=== PATIENT | female | born 1995 | race Caucasian/White ===

== ENCOUNTER 2021-06-18 10:35 | Inpatient (IN) | payer OTHER ==
[2021-06-14 15:34] VITALS: BMI 30.2
[2021-06-18] MEDS ORDERED: LACTATED RINGERS 1,000 ML IV ONE (11:00)
[2021-06-18] MEDS ORDERED: CITRIC ACID-SODIUM CITRATE 15 ML CUP PO ONE (11:00)
[2021-06-18] MEDS: LACTATED RINGERS 1,000 ML IV SCH ×2 (11:19→17:07)
[2021-06-18 11:27] LABS: Basophils # (A) 0.1 k/uL (0-0.2); Basophils % (A) 0 %; Eosinophils # (A) 0.4 k/uL (0-0.7); Eosinophils % (A) 3 %; HCT 33.7 % (34.0-46.0); HGB 11.4 gm/dL (11.4-16.0); Lymphocytes # (A) 3.2 k/uL (1.0-4.8); Lymphocytes % (A) 22 %; MCH 31.3 pg (25.0-35.0); MCHC 33.9 g/dL (31.0-37.0); MCV 92.2 fL (80.0-100.0); Mean Platelet Volume 7.4; Monocytes # (A) 0.7 k/uL (0-1.0); Monocytes % (A) 5 %; Neutrophils # (A) 10.3 k/uL (1.3-7.7); Neutrophils % (A) 69 %; Platelet Count 358 k/uL (150-450); RBC 3.66 m/uL (3.80-5.40); RDW 14.2 % (11.5-15.5)
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
[2021-06-18] MEDS ORDERED: ePHEDrine SULFATE/0.9% NACL/PF 50 MG/5 ML SYRINGE IV ONE (12:06)
[2021-06-18] MEDS ORDERED: INSULIN NPH 300 UNIT/3 ML VIAL SQ ONE (12:06)
[2021-06-18] MEDS ORDERED: ONDANSETRON 4 MG/2 ML VIAL ONE (12:06)
[2021-06-18] MEDS ORDERED: NALBUPHINE 10 MG/ML (1 ML AMP) ONE (12:06)
[2021-06-18] MEDS ORDERED: PHENYLEPHRINE-0.9% NACL SYG 1,000 MCG/10 ML SYRINGE ONE (12:06)
[2021-06-18] MEDS ORDERED: MORPHINE SULFATE (PF) 0.3 MG/0.3 ML SYR ONE (12:06)
[2021-06-18] MEDS ORDERED: KETOROLAC 15 MG/ML 1 ML VIAL ONE (12:06)
[2021-06-18] MEDS ORDERED: ZOLPIDEM 5 MG TAB PO PRN (12:59)
[2021-06-18] MEDS ORDERED: METOCLOPRAMIDE 5 MG/ML 2 ML VIAL IVP PRN (12:59)
[2021-06-18] MEDS ORDERED: SIMETHICONE 80 MG CHEWABLE PO PRN (12:59)
[2021-06-18] MEDS ORDERED: HYDROmorphone 2 MG TAB PO PRN (12:59)
[2021-06-18] MEDS ORDERED: LANOLIN CREAM 5 GM TUBE TOPICAL PRN (12:59)
[2021-06-18] MEDS ORDERED: diphenhydrAMINE 50 MG/ML 1 ML VIAL IVP PRN ×2 (12:59)
[2021-06-18] MEDS ORDERED: diphenhydrAMINE 50 MG CAP PO PRN (12:59)
[2021-06-18] MEDS ORDERED: NALOXONE 0.4 MG/ML 1 ML VIAL IV PRN (12:59)
[2021-06-18] MEDS ORDERED: ONDANSETRON 4 MG/2 ML VIAL IVP PRN (12:59)
[2021-06-18] MEDS ORDERED: diphenhydrAMINE 25 MG CAP PO PRN (12:59)
[2021-06-18] MEDS ORDERED: OXYTOCIN 30 UNITS/500 ML NS 30 UNIT in SALINE 1 500ML.BAG IV SCH (13:00)
--- NOTE | 2021-06-18 13:07 | P.OP ---
Date of Procedure: 06/18/21 Preoperative Diagnosis: #1. 39-6/7 weeks, previous section, requesting repeat #2. Rh- Postoperative Diagnosis: Same Procedure(s) Performed: Repeat low transverse section Anesthesia: spinal Surgeon: Richie Rodriguez Sales Representative Supervisor #1: Linda Lauren Estimated Blood Loss (ml): 325 IV fluids (ml): 1,000 Urine output (ml): 100 Pathology: none sent Condition: stable Disposition: floor Operative Findings: Intraoperatively, there was a an average amount of scarring through the fascia and rectus muscle layer. The bladder was noted to be scarred relatively high. She was delivered of a viable 8 lbs. 9 oz. baby girl with Apgars of 9 at 1 minute and 9 at 5 minutes delivered in the left occiput anterior position. cord blood was collected and sent for evaluation for necessity of RhoGAM. The placenta was delivered manually, intact, and grossly normal though was lightly meconium-stained secondary to lightly meconium-stained fluid. There was a grossly normal three-vessel cord. The uterus, tubes, and ovaries were entirely normal to inspection. Description of Procedure: The patient was prepped and draped in usual fashion after spinal anesthesia was administered by the anesthesiologist. A Pfannenstiel incision was made through pre-existing scar and extended into the abdominal cavity without difficulty. The bladder peritoneum was noted to be scarred relatively high and was therefore elevated, incised, and reflected distally. A 2 cm incision was made in the transverse plane of the lower uterine segment to enter the uterus at which time lightly meconium-stained fluid was noted. The incision was extended in both directions using the bandage scissors. The head was delivered up and through the incision where the nose and mouth were thoroughly suctioned. The remainder of the infant was delivered onto the field where the cord was doubly clamped, cut, and the infant passed resuscitative measures with weight and Apgars as noted above. cord blood was collected for evaluation for necessity of RhoGAM. A segment of cord was doubly clamped, cut, and set aside should cord gases become necessary. The placenta was delivered manually and intact as noted above. Uterus was exteriorized and the interior cavity of the uterus swept of any remaining placental or membranous fragments. The margins of the uterine incision were grasped with Curran clamps and the incision closed in 2 layers. The first layer was a running locking stitch of 0 chromic catgut from margin to margin followed by a running imbricating layer of 0 chromic catgu t from margin to margin. Hemostasis appeared to be excellent. The posterior cul-de-sac was suctioned using a guard as well as a laparotomy sponge. The uterine and ovarian findings were entirely normal as noted above. Uterus was replaced within the abdominal cavity and the gutters swept of any remaining blood, fluid, or clot. The incision was reexamined and found to be hemostatic. The parietal peritoneum was loosely reapproximated in the layer of muscles examined and made hemostatic with the Bovie. The fascia was closed with 2 running stitches of 0 Vicryl proceeding from the lateral margins to the midpoint. The subcutaneous tissues were irrigated, made hemostatic with the Bovie, and reapproximated with a running stitch of 30 plain catgut. The skin was reapproximated with a running subcuticular stitch of 4-0 Vicryl followed by half-inch Steri-Strips placed with Mastisol. Assessment a blood loss for the case was 325 mL. There were no complications. All sponge, instrument, needle counts were correct. The patient tolerated the procedure well and proceeded to the recovery room in stable condition. Both mother and infant are resting comfortably in recovery.
[2021-06-18] MEDS: ACETAMINOPHEN TAB 500 MG TAB PO SCH ×2 (15:24→21:54)
[2021-06-18] MEDS ORDERED: Rhogam IMMUNE GLOBULIN 1,500 UNIT/1 ML IM ONE (16:01)
[2021-06-18] MEDS: KETOROLAC 15 MG/ML 1 ML VIAL IVP PRN (18:31)
[2021-06-18] MEDS: IBUPROFEN 600 MG TAB PO SCH (19:07)
[2021-06-18] MEDS: SENNOSIDES-DOCUSATE SODIUM 1 EACH TAB PO SCH (21:54)
[2021-06-19] MEDS: LACTATED RINGERS 1,000 ML IV SCH ×2 (00:46→14:07)
[2021-06-19] MEDS: KETOROLAC 15 MG/ML 1 ML VIAL IVP PRN ×2 (00:47→08:53)
[2021-06-19] MEDS: IBUPROFEN 600 MG TAB PO SCH ×4 (03:17→20:37)
[2021-06-19] MEDS: ACETAMINOPHEN TAB 500 MG TAB PO SCH ×4 (05:38→22:42)
[2021-06-19 07:15] LABS: Basophils # (A) 0.1 k/uL (0-0.2); Basophils % (A) 0 %; Eosinophils # (A) 0.3 k/uL (0-0.7); Eosinophils % (A) 3 %; HCT 29.6 % (34.0-46.0); Hypochromasia Slight; Lymphocytes # (A) 2.6 k/uL (1.0-4.8); Lymphocytes % (A) 19 %; MCH 31.6 pg (25.0-35.0); MCHC 33.3 g/dL (31.0-37.0); MCV 95.1 fL (80.0-100.0); Monocytes # (A) 0.5 k/uL (0-1.0); Monocytes % (A) 4 %; Neutrophils # (A) 10.1 k/uL (1.3-7.7); Neutrophils % (A) 74 %; Platelet Count 279 k/uL (150-450); RBC 3.12 m/uL (3.80-5.40); RDW 13.7 % (11.5-15.5); WBC 13.7 k/uL (3.8-10.6)
[2021-06-19 07:29] LABS: HGB 9.9 gm/dL (11.4-16.0)
--- NOTE | 2021-06-19 07:29 | P.PN ---
Progress Note - Text Progress Note Date: 06/19/21 Patient POD 1 from . Patient received spinal anesthesia with duramorph for post operative pain management. Patient tolerated the procedure well and pain is well controlled. No headaches, N/V, F/C. Patient is able to ambulate without difficulty. All questions answered.
[2021-06-19] MEDS: SENNOSIDES-DOCUSATE SODIUM 1 EACH TAB PO SCH ×2 (08:23→20:01)
--- NOTE | 2021-06-19 08:49 | P.PNOBGPC ---
Subjective - Subjective Patient reports: Reports appetite normal, Reports voiding normally, Reports pain well controlled, Reports ambulating normally : doing well, nursing well Objective - Vital Signs Latest vital signs: Vital Signs Temp Pulse Resp BP Pulse Ox 06/19/21 03:37 97.7 F 60 18 95/50 98 06/18/21 23:40 97.1 F L 62 18 98/54 99 06/18/21 21:21 97.7 F 64 18 124/72 99 06/18/21 16:00 97.8 F 80 16 115/70 06/18/21 14:56 83 16 112/60 06/18/21 14:26 71 16 107/64 06/18/21 13:56 87 16 123/57 06/18/21 13:41 77 16 121/63 100 06/18/21 13:26 73 16 112/60 100 06/18/21 13:11 101 H 16 110/59 100 06/18/21 12:56 97.5 F L 83 16 121/64 98 06/18/21 11:19 97.5 F L 84 16 135/85 99 Intake and Output 06/18/21 06/19/21 06/19/21 22:59 06:59 14:59 Output Total 200 Balance -200 Output: Urine 200 Uretheral (Caceres) 100 Other: Voiding Method Indwelling Catheter # Voids 0 - Exam Extremities: Present: normal Abdomen: Present: normal appearance, soft. Absent: distention, tenderness Incision: Present: normal, dry, intact Uterus: Present: normal, firm (The uterine fundus is tonic and minimally tender around the umbilicus.) - Labs Labs: Abnormal Lab Results - Last 24 Hours (Table) 06/18/21 06/19/21 Range/Units 10:55 06:05 WBC 15.0 H 13.7 H (3.8-10.6) k/uL RBC 3.66 L 3.12 L (3.80-5.40) m/uL Hgb 9.9 L D (11.4-16.0) gm/dL Hct 33.7 L 29.6 L (34.0-46.0) % Neutrophils # 10.3 H 10.1 H (1.3-7.7) k/uL Assessment and Plan (1) Term Current Visit: Yes Status: Acute Code(s): Z34.90 - ENCNTR FOR SUPRVSN OF NORMAL , UNSP, UNSP TRIMESTER SNOMED Code(s): 86024925 (2) Previous section Current Visit: Yes Status: Acute Code(s): Z98.891 - HISTORY OF UTERINE SCAR FROM PREVIOUS SURGERY SNOMED Code(s): 955072444 (3) S/P section Current Visit: Yes Status: Acute Code(s): Z98.891 - HISTORY OF UTERINE SCAR FROM PREVIOUS SURGERY SNOMED Code(s): 308117284 Plan: Continue routine postoperative care. I have encouraged the patient ambulating the hallways at least 4 times daily, if not more. She is performing all activit ies of daily living. I would anticipate discharge home tomorrow morning, pending no complications.
[2021-06-19] MEDS: HYDROmorphone 2 MG TAB PO PRN (20:00)
[2021-06-20] MEDS: IBUPROFEN 600 MG TAB PO SCH ×2 (00:35→06:41)
[2021-06-20] MEDS: ACETAMINOPHEN TAB 500 MG TAB PO SCH (04:46)
[2021-06-20] MEDS: SENNOSIDES-DOCUSATE SODIUM 1 EACH TAB PO SCH (07:57)
--- NOTE | 2021-06-20 08:43 | P.DS ---
Providers Date of admission: 06/18/21 10:35 Expected date of discharge: 06/20/21 Attending physician: Richie Rodriguez Primary care physician: Stated None - Discharge Diagnosis(es) (1) Term Current Visit: Yes Status: Acute (2) Previous section Current Visit: Yes Status: Acute (3) S/P section Current Visit: Yes Status: Acute Hospital Course: The patient is a 25-year-old 2 para 1001 admitted at 39-6/7 weeks by good dating parameters. She is admitted with previous section requesting repeat. Her was uncomplicated though she was Rh- and received RhoGAM at 28 weeks. Group B strep status is negative. On labor and delivery, all signs reassuring. She was taken the operating room where she underwent repeat low transverse section and uncomplicated fashion was delivered of a viable 8 lbs. 9 oz. baby girl with Apgars of 9 at 1 minute and 9 at 5 minutes. Her postoperative course was entirely unremarkable with vital signs being stable and her temperature was afebrile throughout. She was deemed stable for discharge on postoperative day #2 was discharged home to follow-up in the office in 2 weeks for an incision check and 6 weeks routinely. Discharge instructions included calling for any significantly increased bleeding or foul- smelling lochia Ravi significantly increased fever abdominal pain, perineal complaints, breast complaints, incisional complaints, or anything else that concerned her. She is additionally instructed to have nothing in the vagina for at least 6 weeks time to include intercourse and to abstain from any heavy lifting over the same period of time. She was last instructed to do no driving until off of all pain medications or 2 weeks' time, whichever came first. She understood her instructions and agrees to follow up as noted above. Discharge medications included continued vitamins as she has opted to breast- feed. She was additionally provided with a prescription for Casselberry 5/325 mg, 1-2 by mouth every 6 hours when necessary pain, #20 dispensed with no refills. Maternal blood type is A- and cord blood was sent for evaluation for the necessity of RhoGAM prior to discharge. Rubella status is immune. Discharge hemoglobin and hematocrit were 9.9 and 29.6 respectively. Procedures: #1. Repeat low transverse section Patient Condition at Discharge: Stable Plan - Discharge Summary Discharge Rx Participant: No New Discharge Prescriptions: No Action Pnv No.95/Ferrous Fum/Folic AC [ Multivitamin Tablet] 1 each PO DAILY Discharge Medication List Pnv No.95/Ferrous Fum/Folic AC [ Multivitamin Tablet] 1 each PO DAILY 06/18/21 [History] Follow up Appointment(s)/Referral(s): Richie Rodriguez MD [STAFF PHYSICIAN] - 2 Weeks Discharge Disposition: HOME SELF-CARE
[2021-06-20 09:56] VITALS: BP 117/68; PULSE 77; RESP 16; TEMP 97.6
[2021-06-20] MEDS: HYDROmorphone 2 MG TAB PO PRN (13:18)
== END 2021-06-20 13:25 | disposition home or self-care (01) | DRG 788 ==
LOC: 4FBP 10:35
PROVIDERS: ADMIT Obstetrics & Gynecology; ATTEND Obstetrics & Gynecology
PROC: 10D00Z1 Extraction of Products of Conception, Low, Open Approach (ICD-10-PCS; principal; 2021-06-18 12:00)
DX: O34.211 Maternal care for low transverse scar from previous cesarean delivery (principal); Z3A.39 39 weeks gestation of pregnancy; Z37.0 Single live birth; O77.0 Labor and delivery complicated by meconium in amniotic fluid; O99.334 Smoking (tobacco) complicating childbirth; O99.344 Other mental disorders complicating childbirth; O99.52 Diseases of the respiratory system complicating childbirth; J45.909 Unspecified asthma, uncomplicated; F41.9 Anxiety disorder, unspecified; F17.200 Nicotine dependence, unspecified, uncomplicated
CPT/HCPCS: 85025; 85461; 86850; 86900; 86901; 88307